=== PATIENT | female | born 1985 | race African-American/Black ===

== ENCOUNTER 2017-11-09 17:12 | Emergency (ER) | payer OTHER ==
[2017-11-09 17:16] VITALS: BP 124/82; PULSE 77; BMI 28.1
--- NOTE | 2017-11-09 17:35 | PDOC ---
History of Present Illness - General History Source: Patient Exam Limitations: No Limitations - History of Present Illness Initial Comments: 11/09/17 17:49 The patient is a 32 year old female, with no significant past medical history, who presents to the emergency department complaining of chest pain and shortness of breath since 8:15am when she was arriving home from work. She notes that she went back to sleep and woke up with the same pain. She describes her pain as a 4/10 in severity, with radiation to her left shoulder. She denies any modifying factors. She notes that this is the first time that this has happened. She reports that she took 400mg of Motrin shortly prior to presenting in the ED. She reports that she is experiencing mild conversational dyspnea. She denies any recent illness or sick contacts. She denies taking any medications. She denies any recent travel or use of control. She reports that she has not had any sexual intercourse in over 3 years. The patient denies headache or dizziness. Denies fever, chills, nausea, vomiting , diarrhea and constipation. Family Hx: Mother ( from [place] at age 55) Allergies: None Past surgical history: None reported Social History: No alcohol, tobacco or drug use reported <Yehuda Morris - Last Filed: 11/09/17 18:16> <Manuela Zayas - Last Filed: 11/09/17 18:52> - General Chief Complaint: Shortness of Breath Stated Complaint: CHEST PAIN Time Seen by Provider: 11/09/17 17:34 Past History <Yehuda Morris - Last Filed: 11/09/17 18:16> - Past Medical History COPD: No - Reproductive History (#): 3 Para: 2 Cervical CA: No Dysfunctional Uterine Bleeding: No Ectopic : No Endometrial CA: No Polycystic Ovaries: No Therapeutic (s) & number: No Tubal Ligation: No - Suicide/Smoking/Psychosocial Hx Smoking History: Never smoked Hx Alcohol Use: No Drug/Substance Use Hx: No <Manuela Zayas - Last Filed: 11/09/17 18:52> - Past Medical History Allergies/Adverse Reactions: Allergies Allergy/AdvReac Type Severity Reaction Status Date / Time No Known Allergies Allergy Verified 11/09/17 17:16 Home Medications: Ambulatory Orders NK [No Known Home Medication] 08/03/15 Review of Systems - Review of Systems Able to Perform ROS?: Yes Comments:: 11/09/17 17:49 GENERAL/CONSTITUTIONAL: No fever or chills. No weakness. HEAD, EYES, EARS, NOSE AND THROAT: No change in vision. No ear pain or discharge. No sore throat. CARDIOVASCULAR: (+) Shortness of breath and chest pain RESPIRATORY: No cough, wheezing, or hemoptysis. GASTROINTESTINAL: No nausea, vomiting, diarrhea or constipation. GENITOURINARY: No dysuria, frequency, or change in urination. MUSCULOSKELETAL: No joint or muscle swelling or pain. No neck or back pain. SKIN: No rash NEUROLOGIC: No headache, vertigo, loss of consciousness, or change in strength/ sensation. ENDOCRINE: No increased thirst. No abnormal weight change HEMATOLOGIC/LYMPHATIC: No anemia, easy bleeding, or history of blood clots. ALLERGIC/IMMUNOLOGIC: No hives or skin allergy. <Yehuda Morris - Last Filed: 11/09/17 18:16> *Physical Exam - Vital Signs Last Vital Signs Temp Pulse Resp BP Pulse Ox 77 18 124/82 98 11/09/17 17:14 11/09/17 17:14 11/09/17 17:14 11/09/17 17:14 - Physical Exam Comments: 11/09/17 17:50 GENERAL: Awake, alert, and fully oriented, in no acute distress HEAD: No signs of trauma, normocephalic, atraumatic EYES: PERRLA, EOMI, sclera anicteric, conjunctiva clear ENT: Auricles normal inspection, hearing grossly normal, nares patent, oropharynx clear without exudates. Moist mucosa NECK: Normal ROM, supple, no lymphadenopathy, JVD, or masses LUNGS: No distress, speaks full sentences, clear to auscultation bilaterally HEART: Regular rate and rhythm, normal S1 and S2, no murmurs, rubs or gallops, peripheral pulses normal and equal bilaterally. ABDOMEN: Soft, nontender, normoactive bowel sounds. No guarding, no rebound. No masses EXTREMITIES : Normal inspection, Normal range of motion, no edema. No clubbing or cyanosis. NEUROLOGICAL: Cranial nerves II through XII grossly intact. Normal speech, normal gait, no focal sensorimotor deficits SKIN: Warm, Dry, normal turgor, no rashes or lesions noted <Yehuda Morris - Last Filed: 11/09/17 18:16> - Vital Signs Last Vital Signs Temp Pulse Resp BP Pulse Ox 77 18 124/82 98 11/09/17 17:14 11/09/17 17:14 11/09/17 17:14 11/09/17 17:14 <Manuela Zayas - Last Filed: 11/09/17 18:52> Heart Score/ECG Review - History History: Slightly suspicious <Manuela Zayas - Last Filed: 11/09/17 18:52> Medical Decision Making - Medical Decision Making 11/09/17 18:19 Pt presents to the ED complaining of 10 hours of constant substernal chest pain. No aggrevating or alieviating factors. No risk factors for cardiac disease. PERC negative. Wells score is also 0. Patient is extremely low risk for cardiac or pulmonary disease. Will check EKG, treat with motrin, likely discharge home if ekg is normal. 11/09/17 18:47 EKg is normal. Will discharge home. <Manuela Zayas - Last Filed: 11/09/17 18:52> *DC/Admit/Observation/Transfer - Attestations Scribe Attestion: 11/09/17 17:50 Documentation prepared by Yehuda Morris, acting as medical coder for Manuela Zayas MD <Yehuda Morris - Last Filed: 11/09/17 18:16> - Discharge Dispostion Admit: No <Manuela Zayas - Last Filed: 11/09/17 18:52> Diagnosis at time of Disposition: Chest pain Qualifiers: Chest pain type: precordial pain Qualified Code(s): R07.2 - Precordial pain - Discharge Dispostion Disposition: HOME Condition at time of disposition: Good - Patient Instructions Printed Discharge Instructions: DI for Chest Pain Additional Instructions: return to the ED for severe pain, severe shortness of breath, other new or worsening symptoms. Follow up with your primary care doctor--call for appointment on Saturday. - Post Discharge Activity Forms/Work/School Notes: Back to Work
[2017-11-09] MEDS ORDERED: IBUPROFEN 200 MG TABLET PO ONE (18:10)
[2017-11-09] MEDS ORDERED: IBUPROFEN 400 MG TABLET (FP) PO ONE (18:15)
[2017-11-09 18:48] VITALS: TEMP 99
--- NOTE | 2017-11-10 14:31 | EKG ---
Test Reason : Blood Pressure : / mmHG Vent. Rate : 062 BPM Atrial Rate : 062 BPM P-R Int : 182 ms QRS Dur : 072 ms QT Int : 374 ms P-R-T Axes : 058 018 051 degrees QTc Int : 379 ms NORMAL SINUS RHYTHM NONSPECIFIC T WAVE ABNORMALITY ABNORMAL ECG NO PREVIOUS ECGS AVAILABLE Confirmed by MD Jak, Quinten ([id number]) on 11/10/2017 2:30:50 PM Referred By: Confirmed By:Quinten Benedict MD
== END 2017-11-09 19:02 | disposition home or self-care (01) ==
LOC: JER 17:12
DX: R07.2 Precordial pain (principal)
CPT/HCPCS: 93005; 93010; 99283-25

== ENCOUNTER 2018-08-18 00:46 | Emergency (ER) | payer SELFPAY ==
[2018-08-18 02:20] VITALS: BP 105/69; PULSE 72; TEMP 98.2; BMI 27.6
--- NOTE | 2018-08-18 02:25 | PDOC ---
History of Present Illness - General Chief Complaint: Allergic Reaction Stated Complaint: ALLERGIC REACTION Time Seen by Provider: 08/18/18 02:06 History Source: Patient Exam Limitations: No Limitations - History of Present Illness Initial Comments: 08/18/18 02:20 HISTORY OF PRESENT ILLNESS: 33-year-old woman with past medical history of " skin infection" who presents emergency department for evaluation of 2 lesions. Patient reported that approximately one week ago she began to have circular lesions present to the dorsum of the left hand and in the right antecubital. She reportedly was slightly itchy and the more she scratches the worst became. She noted that the lesions became encrusted after starting as tiny circular fluid-filled structures. Patient reports she has had similar lesions in the past which were treated with clindamycin as an outpatient by a senior controls engineer. No recent travel or sick contacts. PAST MEDICAL HISTORY: Denies past medical history SURGICAL HISTORY: Denies ALLERGIES: No known drug allergies REVIEW OF SYSTEMS General/Constitutional: Denies fever or chills. Denies weakness, weight change. HEENT: Denies change in vision. Denies ear pain or discharge. Denies sore throat. Cardiovascular: Denies chest pain or shortness of breath. Respiratory: Denies cough, wheezing, or hemoptysis. Gastrointestinal: Denies nausea, vomiting, diarrhea or constipation. Denies rectal bleeding. Genitourinary: Denies dysuria, frequency, or change in urination. Musculoskeletal: Denies joint or muscle swelling or pain. Denies neck or back pain. Skin and breasts: see HPI Neurologic: Denies headache, vertigo, loss of consciousness, or loss of sensation. Psychiatric: Denies depression or anxiety. Endocrine: Denies increased thirst. Denies abnormal weight change. Hematologic/Lymphatic: Denies anemia, easy bleeding, or history of blood clots. Allergic/Immunologic: Denies hives or skin allergy. Denies latex allergy. PHYSICAL EXAM General Appearance: Well-appearing, appropriately dressed. No apparent distress , no intoxication. Respiratory/Chest: Lungs CTAB. No shortness of breath, chest tenderness, respiratory distress, accessory muscle use. No crackles, rales, rhonchi, stridor , wheezing, dullness Cardiovascular: RRR. S1, S2. No JVD, murmur, bradycardia, tachycardia. Musculoskeletal/Extremities: Normal inspection. FROM of all extremities, normal capillary refill. Pelvis Stable. No CVA tenderness. No tenderness to extremities, pedal edema, swelling, erythema or deformity. Integumentary: 4 cm circular requested lesion present to the dorsum of the left hand proximal to the third and fourth MCP joints. Similar-appearing lesion present to the right before meals which is approximately 4 cm circular. Past History - Past Medical History Allergies/Adverse Reactions: Allergies Allergy/AdvReac Type Severity Reaction Status Date / Time No Known Allergies Allergy Verified 08/18/18 02:20 Home Medications: Ambulatory Orders Clindamycin Topical Solution [Cleocin 1% Topical Solution -] 30 ml TP DAILY #1 bottle 08/18/18 Mupirocin Ointment [Bactroban 2% Ointment -] 1 applic TP TID #1 tube 08/18/18 COPD: No - Reproductive History (#): 3 Para: 2 Cervical CA: No Dysfunctional Uterine Bleeding: No Ectopic : No Endometrial CA: No Polycystic Ovaries: No Therapeutic (s) & number: No Tubal Ligation: No - Suicide/Smoking/Psychosocial Hx Smoking History: Never smoked Have you smoked in the past 12 months: No Information on smoking cessation initiated: No Hx Alcohol Use: No Drug/Substance Use Hx: No *Physical Exam - Vital Signs Last Vital Signs Temp Pulse Resp BP Pulse Ox 98.2 F 72 18 105/69 99 08/18/18 01:05 08/18/18 01:05 08/18/18 01:05 08/18/18 01:05 08/18/18 01:05 Moderate Sedation - Procedure Monitoring Vital Signs: Procedure Monitoring Vital Signs Temperature 98.2 F 08/18/18 01:05 Pulse Rate 72 08/18/18 01:05 Respiratory Rate 18 08/18/18 01:05 Blood Pressure 105/69 08/18/18 01:05 O2 Sat by Pulse Oximetry (%) 99 08/18/18 01:05 Medical Decision Making - Medical Decision Making 08/18/18 02:34 A/P: 33-year-old woman with impetigo Wound culture This time patient does not have any insurance. We'll give the patient prescriptions for clindamycin and mupirocin the patient is able to fill which overprescription is cheaper. This point the patient not to take both medications just the one that caused her last period *DC/Admit/Observation/Transfer Diagnosis at time of Disposition: Impetigo - Discharge Dispostion Disposition: HOME Condition at time of disposition: Stable Decision to Admit order: No - Prescriptions Prescriptions: Clindamycin Topical Solution [Cleocin 1% Topical Solution -] 30 ml TP DAILY #1 bottle Mupirocin Ointment [Bactroban 2% Ointment -] 1 applic TP TID #1 tube - Referrals Referrals: Genevieve Hernandez MD [Staff Physician] - - Patient Instructions Additional Instructions: Apply mupirocin to lesions 3 times a day. Take Tylenol or Motrin as needed for fever and/or pain. You've been given a referral for senior controls engineer. Make an appointment for reevaluation in one week as needed. Follow-up with her primary doctor in one week as needed. Return to emergency department for any concerns. Thank you very much for choosing us to provide your emergent health care needs. - Post Discharge Activity
== END 2018-08-18 02:37 | disposition home or self-care (01) ==
LOC: JER 00:46
DX: L01.09 Other impetigo (principal)
CPT/HCPCS: 87070; 87077; 87205; 99281-25

== ENCOUNTER 2019-05-07 01:51 | Emergency (ER) | payer SELFPAY ==
--- NOTE | 2019-05-07 02:13 | PDOC ---
History of Present Illness - General Chief Complaint: Urinary Problem Stated Complaint: ABD PAIN Time Seen by Provider: 05/07/19 02:12 History Source: Patient Exam Limitations: No Limitations - History of Present Illness Initial Comments: 33 year old female with no PMH presented to ED for suprapubic pain associated with dysuria x1 week. She reported that she began to feel her symptoms x1 week ago, figured she had a UTI and started taking Azo. She reported around the same time she developed yellow/clear vaginal discharge, she thought was BV. She reported she has not been sexually active in many years, reported last STD testing 11/2018 negative. She stated her symptoms intermittently improved, but then yesterday started again. She denied fever, vomiting, diarrhea, upper abdominal pain, vaginal bleeding. Past History - Past Medical History Allergies/Adverse Reactions: Allergies Allergy/AdvReac Type Severity Reaction Status Date / Time No Known Allergies Allergy Verified 05/07/19 02:01 Home Medications: Ambulatory Orders metroNIDAZOLE [Flagyl -] 500 mg PO BID #14 tablet 05/07/19 COPD: No - Reproductive History (#): 3 Para: 2 Cervical CA: No Dysfunctional Uterine Bleeding: No Ectopic : No Endometrial CA: No Polycystic Ovaries: No Therapeutic (s) & number: No Tubal Ligation: No - Psycho Social/Smoking Cessation Hx Smoking History: Never smoked Have you smoked in the past 12 months: No Information on smoking cessation initiated: No Hx Alcohol Use: No Drug/Substance Use Hx: No Review of Systems - Review of Systems Able to Perform ROS?: Yes Comments:: ROS General: denied fever, chills, generalized weakness. HEENT: denied sore throat, rhinorrhea, ear pain. Cardiovascular: denied chest pain, palpitations, syncope, diaphoresis. Respiratory: denied shortness of breath, cough, sputum production, hemoptysis. Gastrointestinal: admitted to abdominal pain. denied nausea, vomiting, diarrhea , constipation, blood in stool. Genitourinary: admitted to dysuria, increased urinary frequency. denied hematuria, urinary incontinence, flank pain. Back: denied back pain. Musculoskeletal: denied joint pain, muscle pain, joint swelling. Neurological: denied headache, dizziness, numbness, tingling, weakness. Integumentary: denied rash, laceration, abrasion. Hematologic/Lymphatic: denied bruising or bleeding. PE Constitutional: Well-nourished, Well-developed, appearing stated age. HEENT: head is normocephalic, atraumatic. EOMI. PERRLA. Neck: supple. Full ROM. Cardiovascular: regular heart rhythm. no murmurs. no pericardial friction rub. Respiratory: clear to auscultation bilaterally. no crackles, rhonchi or wheezing. no stridor. Gastrointestinal: soft, flat. nontender to palpation. normal bowel sounds. no rebound, guarding, masses. Back: negative for CVA tenderness bilaterally. Extremities: peripheral pulses intact. no lower extremity edema. Neurological: CN 2-12 grossly intact. moves all four extremities. Psych: awake, alert, oriented x3. follows commands. answers questions appropriately. Pelvic: pt refused. *Physical Exam - Vital Signs Last Vital Signs Temp Pulse Resp BP Pulse Ox 98.6 F 69 20 121/82 99 05/07/19 02:08 05/07/19 02:08 05/07/19 02:08 05/07/19 02:08 05/07/19 02:08 Medical Decision Making - Medical Decision Making 33 year old female with above PMH presented to ED for suprapubic pain associated with dysuria/increased urinary frequency, vaginal discharge (yellow/ clear). Pt refused pelvic examination. Initial Vital Signs Temp Pulse Resp BP Pulse Ox 98.6 F 69 20 121/82 99 05/07/19 02:08 05/07/19 02:08 05/07/19 02:08 05/07/19 02:08 05/07/19 02:08 Afebrile. No tachycardia. No tachypnea. No hypotension. No hypoxia on room air. Urine Test Results Urine Color Yellow 05/07/19 02:10 Urine Appearance Clear 05/07/19 02:10 Urine pH 5.5 (5.0-8.0) 05/07/19 02:10 Ur Specific [place] 1.027 (1.010-1.035) 05/07/19 02:10 Urine Protein Negative (NEGATIVE) 05/07/19 02:10 Urine Glucose (UA) Negative (NEGATIVE) 05/07/19 02:10 Urine Ketones Negative (NEGATIVE) 05/07/19 02:10 Urine Blood Negative (NEGATIVE) 05/07/19 02:10 Urine Nitrite Negative (NEGATIVE) 05/07/19 02:10 Urine Bilirubin Negative (NEGATIVE) 05/07/19 02:10 Ur Leukocyte Esterase Negative (NEGATIVE) 05/07/19 02:10 Negative for UTI. Negative for hematuria. Negative for proteinuria. Negative urine . 05/07/19 02:42 Pt informed of results. I and Dr. Barber explained the need for a pelvic exam to fully evaluate pt's complaints. She expressed understanding but continued to refuse. Pt informed of risk of refusing pelvic examination - including untreated infection, abscess, infertility. Pt signed out against medical advice. Will cover for BV. Discharge - Discharge Information Problems reviewed: Yes Clinical Impression/Diagnosis: Pain Condition: Guarded Disposition: AGAINST MEDICAL ADVICE - Admission No - Additional Discharge Information Prescriptions: metroNIDAZOLE [Flagyl -] 500 mg PO BID #14 tablet - Follow up/Referral - Patient Discharge Instructions Additional Instructions: Follow up with your primary care doctor within 3 days. Your care is not complete until you follow up. Return to the Emergency Department for increasing pain, fever, vomiting, lightheadedness, chest pain, shortness of breath or any other new, worsening or concerning symptoms. - Post Discharge Activity Work/Back to School Note: Back to Work
[2019-05-07 02:15] LABS: PH,URINE 5.5 (5.0-8.0); URINE APPEARANCE CLEAR; URINE BILIRUBIN NEGATIVE (NEGATIVE); URINE COLOR YELLOW; URINE GLUCOSE (UA) NEGATIVE (NEGATIVE); URINE KETONE NEGATIVE (NEGATIVE); URINE LEUK ESTERASE NEGATIVE (NEGATIVE); URINE NITRITE NEGATIVE (NEGATIVE); URINE PROTEIN NEGATIVE (NEGATIVE)
[2019-05-07 02:32] VITALS: BP 121/82; PULSE 69; TEMP 98.6; BMI 27.8
--- NOTE | 2019-05-07 02:49 | PDOC ---
Attending Attestation - Resident Resident Name: Kim Rod - ED Attending Attestation I have performed the following: I have examined & evaluated the patient, The case was reviewed & discussed with the resident, I agree w/resident's findings & plan - HPI HPI: 05/07/19 02:47 see resident hpi - Physicial Exam PE: 05/07/19 02:47 agree with resident exam - Medical Decision Making 05/07/19 02:48 33 yo female with suprapubic pain Patient admits to some yellowish discharge as well as dysuria and frequency Urinalysis is within normal limits Patient is refusing pelvic exam, it was explained to her that this will severely limit her evaluation She will be signing out AGAINST MEDICAL ADVICE, Flagyl given for presumptive bacterial vaginosis as patient has not been sexually active for several years
== END 2019-05-07 02:58 | disposition left against medical advice (07) ==
LOC: JER 01:51
DX: R10.30 Lower abdominal pain, unspecified (principal)
CPT/HCPCS: 81003; 84703; 87086; 99283-25

== ENCOUNTER 2020-12-05 14:17 | Emergency (ER) | payer OTHER ==
[2020-12-05 14:37] VITALS: BP 129/87; PULSE 96; TEMP 98; BMI 27.1
[2020-12-05 16:00] LABS: EPI CELLS >36 /uL (0-25.1); HCG,QUALITATIVE URINE Negative; HYALINE CASTS 1 /uL (0-3.1); PH,URINE 5.5 (5.0-8.0); URINE APPEARANCE CLOUDY; URINE BACTERIA 1044 /uL (0-1359); URINE BILIRUBIN NEGATIVE (NEGATIVE); URINE COLOR YELLOW; URINE GLUCOSE (UA) NEGATIVE (NEGATIVE); URINE KETONE NEGATIVE (NEGATIVE); URINE LEUK ESTERASE 2+ (NEGATIVE); URINE NITRITE NEGATIVE (NEGATIVE); URINE PROTEIN NEGATIVE (NEGATIVE); URINE UROBILINOGEN 0.2 mg/dL (0.2-1.0); URINE WBC 24 /uL (0-25.8)
[2020-12-05 16:06] LABS: COCAINE, UR NEGATIVE ng/ml (CUTOFF=300); OPIATES, URI NEGATIVE ng/ml (CUTOFF=300); PHENCYCLIDINE,URINE NEGATIVE ng/ml (CUTOFF=25); URINE BARBITURATES NEGATIVE ng/ml (CUTOFF=200); URINE BENZODIAZEPINES NEGATIVE ng/ml (CUTOFF=200)
[2020-12-05 16:20] LABS: METHADONE, UR NEGATIVE ng/ml (CUTOFF=300); URINE AMPHETAMINES NEGATIVE ng/ml (CUTOFF=500)
[2020-12-07 00:36] LABS: HIV INTERPRETATION NEGATIVE (NEGATIVE)
== END 2020-12-05 17:04 | disposition home or self-care (01) ==
LOC: JERFT 14:17
DX: T76.21XA Adult sexual abuse, suspected, initial encounter (principal); Z02.89 Encounter for other administrative examinations
CPT/HCPCS: 36415; 80074; 80307; 81003; 84703; 86780; 87086; 87389; 87491; 87591; 99283-25